=== PATIENT | female | born 1990 | race Caucasian/White ===

== ENCOUNTER → 2018-05-25 | Outpatient (CLI) | payer BC, OTHER ==
[~2018-05-25] MED LIST: ACHD5005 PO; BIRTH CONTROL PO; DCS100C PO; FERR-57 PO; IBP600T1 PO; Nifedipine PO; PREN-115 PO; SULF1TAB38 PO
--- NOTE | 2018-05-25 16:09 | Diagnostic Imaging Report ---
INDICATION: Anatomy scan. TECHNIQUE: Multiple real-time grayscale images were obtained over the gravid uterus. COMPARISON: None. FINDINGS: There is a single live fetus in a cephalic presentation. heart rate was recorded at 149 beats per minute. Cervical length is 4.4 cm. Placenta is posterior. Amniotic fluid volume is normal. survey shows kidneys, bladder and stomach to be unremarkable. The brain is unremarkable. There is a four-chamber heart. There is a three-vessel cord with normal insertion. Spine is unremarkable. Biometrical measurements are as follows: Biparietal 5.22 cm, age 21 weeks 6 days. Head circumference 19.28 cm, age 21 weeks 4 days. Abdominal circumference 14.33 cm, age 19 weeks 5 days. Femur length 3.53 cm, age 21 weeks 2 days. Sonographic estimate age: 21 weeks 1 days. Sonographic estimated date of delivery: 10/04/2018. Estimated Weight: 359 gm (+/- 52 gm). LMP percentile: 59%. heart rate: 149 beats per minute. number: 1 of 1. IMPRESSION: Single live IUP approximately 21 weeks 1 day gestational age. The estimated date of confinement sonographically is 10/04/2018. Dictated by: Dictated on workstation # [id number]
== END ==
LOC: RAD 14:35
PROVIDERS: ATTEND Obstetrics & Gynecology
DX: Z36.89 Encounter for other specified antenatal screening (principal); Z3A.21 21 weeks gestation of pregnancy
CPT/HCPCS: 76805

== ENCOUNTER → 2018-09-20 | Outpatient (CLI) | payer OTHER ==
[2018-09-20 15:53] LABS: MEAN PLATELET VOLUME 9.9 FL (7.4-10.4); RED CELL DISTRIBUTION WIDTH 11.9 % (10.0-14.5); WHITE BLOOD COUNT 10.9 10^3/uL (4.3-11.0)
[2018-09-20 16:21] LABS: ALANINE AMINOTRANSFERASE 8 U/L (0-55); ALBUMIN 3.5 GM/DL (3.2-4.5); ALKALINE PHOSPHATASE 150 U/L (40-136); BILIRUBIN,TOTAL 0.3 MG/DL (0.1-1.0); BUN/CREATININE RATIO 10; CALCIUM 8.9 MG/DL (8.5-10.1); CARBON DIOXIDE 16 MMOL/L (21-32); CHLORIDE 102 MMOL/L (98-107); CREATININE SERUM 0.69 MG/DL (0.60-1.30); GFR ESTIMATED > 60; GLUCOSE 117 MG/DL (70-105); POTASSIUM 3.6 MMOL/L (3.6-5.0); SODIUM 138 MMOL/L (135-145); TOTAL PROTEIN 6.4 GM/DL (6.4-8.2)
[2018-09-20 20:29] LABS: URIC ACID 6.1 MG/DL (2.6-7.2)
== END ==
LOC: LAB FS 15:05
PROVIDERS: ATTEND Obstetrics & Gynecology
DX: O13.3 Gestational [pregnancy-induced] hypertension without significant proteinuria, third trimester (principal); Z3A.37 37 weeks gestation of pregnancy
CPT/HCPCS: 36415; 80053; 82570; 84156; 84550; 85027

== ENCOUNTER → 2018-09-23 | Outpatient (CLI) | payer OTHER ==
[~2018-09-23] MED LIST changes: +DOCU100C37 PO; +IBUP-844 PO
== END ==
LOC: LABNPT 16:02
PROVIDERS: ATTEND Obstetrics & Gynecology
DX: O13.9 Gestational [pregnancy-induced] hypertension without significant proteinuria, unspecified trimester (principal)
CPT/HCPCS: 82570; 84156

== ENCOUNTER 2018-09-27 12:05 | Inpatient (IN) | payer BC, OTHER ==
[2018-09-27] VITALS (8 sets, daily range): BP systolic 124–138; BP diastolic 86–97
[~2018-09-27] VITALS: Ht 165.1 cm; Wt 70.3 kg
--- NOTE | 2018-09-27 11:55 | NUR ---
LUCERO MARAVILLA presented to unit via AMB from DR. PORTER'S OFFICE , accompanied by DR. PORTER AND PT'S MOM, with c/o UNCONTROLLED GESTATIONAL HYPERTENSION AND PREVIOUS SECTION. LUCERO MARAVILLA weighed, gowned, voided, and to bed. EFHM and TOCO applied, VS taken. LUCERO MARAVILLA oriented to bed controls, call light, TV, heat, and A/C controls.
[~2018-09-27 12:05] MED LIST changes: -DOCU100C37 PO; -IBUP-844 PO
[2018-09-27] MEDS ORDERED: LACTATED RINGERS 1,000 ML IV ONE (12:22)
[2018-09-27] MEDS ORDERED: LACTATED RINGERS 1,000 ML IV SCH (12:30)
[2018-09-27 13:10] LABS: BASOPHILS % (AUTO) 0 % (0-10); EOSINOPHILS # (AUTO) 0.1 10^3/uL (0.0-0.3); EOSINOPHILS % (AUTO) 1 % (0-10); HEMATOCRIT 37 % (35-52); HEMOGLOBIN 12.9 G/DL (11.5-16.0); LYMPHOCYTES # (AUTO) 2.7 X 10^3 (1.0-4.0); LYMPHOCYTES % (AUTO) 25 % (12-44); MEAN CORPUSCULAR HEMOGLOBIN 32 PG (25-34); MEAN CORPUSCULAR HGB CONC 35 G/DL (32-36); MEAN CORPUSCULAR VOLUME 91 FL (80-99); MEAN PLATELET VOLUME 10.7 FL (7.4-10.4); MONOCYTES # (AUTO) 0.9 X 10^3 (0.0-1.0); MONOCYTES % (AUTO) 8 % (0-12); NEUTROPHILS % (AUTO) 66 % (42-75); PLATELET COUNT 210 10^3/uL (130-400); WHITE BLOOD COUNT 10.6 10^3/uL (4.3-11.0)
--- NOTE | 2018-09-27 13:20 | History & Physical-OB ---
OB - Chief Complaint & HPI Date/Time Date of Admission: Date of Admission: Sep 27, 2018 at 12:05 Date seen by a Provider: Sep 27, 2018 Time Seen by a Provider: 11:55 Chief Complaint/History OB-Reason for Admission/Chief: Section Hx : 3 Expected Date of Delivery: October 10, 2018 Gestational Age in Weeks: 38 Gestational Age in Days: 1 Indication for : desires repeat Other reason for admission: Patient seen in office today due to elevation in BP, as well as other symptoms including numbness in hands and headache. Reports it has continued through the weekend. BP today in office 140s/90s-100s. Also BPP 8/, but SGA fetus 20th % tile. Admission Nurse Assessment Rev: Yes Allergies and Home Medications Allergies Coded Allergies: prochlorperazine (Unverified Allergy, Severe, ANAPHYLAXIS, 11/28/14) Home Medications Docusate Sodium 100 Mg Cap, 100 MG PO BID PRN for CONSTIPATION Prescribed by: PANCHITO PORTER on 11/29/14 0807 Ferrous Sulfate 325 Mg Tablet, 325 MG PO DAILY Prescribed by: PANCHITO PORTER on 11/29/14 0807 Hydrocodone Bit/Acetaminophen 1 Tab Tab, 1-2 TAB PO Q6H PRN for PAIN Prescribed by: PANCHITO PORTER on 11/29/14 0807 Ibuprofen 600 Mg Tab, 600 MG PO Q6H PRN for PAIN Prescribed by: PANCHITO PORTER on 11/29/14 0807 Vit #108/Iron/Fa 1 Each Tablet, 1 EACH PO DAILY, (Reported) Patient Home Medication List Home Medication List Reviewed: Yes OB - History Hx of Present Care: Yes Ultrasounds: Abnormal US findings (SGA) Obstetrical Complications: Gestational Hypertension Medical Complications: None Obstetrical History Hx Termination: No Hx Multiple Gestation: No Hx Stillbirth: No Hx Complication: No Hx Induced Hypertens: No Hx Maternal Gestational Diabet: No Delivery History Hx Dystocia: No Hx Large For Gestational Age I: No Hx Small for Gestational Age I: No Hx Section: Yes (amnionitis ) Hx Vaginal Delivery Post C-Sec: No Hx Blood Disorders: No Adverse Rxn to Tranfusion: No Patient Past Medical History History of rupture of membranes Previous section Social History/Family History HIV/AIDS: No Sexually Transmitted Disease: No Immunizations Hepatitis A: Yes Hepatitis B: Yes Tetanus Booster (TDap): Less than 5yrs Date of Influenza Vaccine: Apr 06, 2014 OB - Admission Exam Physical Exam HEENT: NCAT Heart: Rhythm Normal Lungs: Clear Abdomen: Gravid Extremities: Normal Reflexes: Normal Heart Rate: 130's Accelerations: Accelerations Present Decelerations: No Decelerations Short Term Variability: Present Wire Bender Hand Variability: Average (6-25) Contractions on Admission: >10 Minutes Apart Labs Laboratory Tests Test 09/27/18 12:30 Range/Units White Blood Count 10.6 4.3-11.0 10^3/uL Red Blood Count 4.06 L 4.35-5.85 10^6/uL Hemoglobin 12.9 11.5-16.0 G/DL Hematocrit 37 35-52 % Mean Corpuscular Volume 91 80-99 FL Mean Corpuscular Hemoglobin 32 25-34 PG Mean Corpuscular Hemoglobin Concent 35 32-36 G/DL Red Cell Distribution Width 12.0 10.0-14.5 % Platelet Count 210 130-400 10^3/uL Mean Platelet Volume 10.7 H 7.4-10.4 FL Neutrophils (%) (Auto) 66 42-75 % Lymphocytes (%) (Auto) 25 12-44 % Monocytes (%) (Auto) 8 0-12 % Eosinophils (%) (Auto) 1 0-10 % Basophils (%) (Auto) 0 0-10 % Neutrophils # (Auto) 7.0 1.8-7.8 X 10^3 Lymphocytes # (Auto) 2.7 1.0-4.0 X 10^3 Monocytes # (Auto) 0.9 0.0-1.0 X 10^3 Eosinophils # (Auto) 0.1 0.0-0.3 10^3/uL Basophils # (Auto) 0.0 0.0-0.1 10^3/uL OB - Assessment/Plan/Diagnosis Assessment Assessment: section Admission Dx 28 yo @ 38.1 weeks Uncontrolled worsening GHTN SGA Previous x 2 GBS neg Admission Status: Inpatient Order (span 2 midnights) Reason for Inpatient Admission: Repeat at term Plan Plan: Section PANCHITO PORTER DO Sep 27, 2018 13:20
[2018-09-27 13:35] LABS: ALANINE AMINOTRANSFERASE 10 U/L (0-55); ALBUMIN 3.5 GM/DL (3.2-4.5); ALKALINE PHOSPHATASE 182 U/L (40-136); BILIRUBIN,TOTAL 0.3 MG/DL (0.1-1.0); BUN/CREATININE RATIO 17; CALCIUM 9.2 MG/DL (8.5-10.1); CARBON DIOXIDE 20 MMOL/L (21-32); CHLORIDE 107 MMOL/L (98-107); CREATININE SERUM 0.66 MG/DL (0.60-1.30); GFR ESTIMATED > 60; GLUCOSE 87 MG/DL (70-105); POTASSIUM 3.8 MMOL/L (3.6-5.0); SODIUM 136 MMOL/L (135-145); TOTAL PROTEIN 6.5 GM/DL (6.4-8.2); URIC ACID 6.3 MG/DL (2.6-7.2)
[2018-09-27] MEDS ORDERED: CATHETER FLUSH 10 ML SYR IV SCH ×2 (14:00→22:00)
[2018-09-27] MEDS ORDERED: D5 LR IV SOLUTION 1,000 ML IV ONE (14:23)
[2018-09-27] MEDS ORDERED: D5 LR IV SOLUTION 1,000 ML IV SCH (14:30)
[2018-09-27] MEDS ORDERED: LACTATED RINGERS 1,000 ML IV PRN ×2 (16:10)
[2018-09-27] MEDS ORDERED: FAMOTIDINE 20MG/2ML IV (PEPCID) IV ONE (16:15)
[2018-09-27] MEDS ORDERED: METOCLOPRAMIDE INJ 10 MG/2 ML (REGLAN) IV ONE (16:15)
[2018-09-27] MEDS ORDERED: CITRIC ACID/SOB CIT (BICITRA) 30 ML UDC PO ONE (16:15)
[2018-09-27] MEDS ORDERED: CATHETER FLUSH 10 ML SYR IV PRN (16:15)
[2018-09-27] MEDS ORDERED: ceFAZolin INJECTION 1,000 MG in WATER (STERILE) FOR INJECTION 10 ML IV ONE (16:30)
[2018-09-27] MEDS ORDERED: OXYTOCIN/NORMAL SALINE 500 ML IV ONE ×2 (16:49→17:36)
[2018-09-27] MEDS ORDERED: fentaNYL INJECTION 100 MCG/2 ML AMP ONE (16:49)
--- NOTE | 2018-09-27 17:00 | NUR ---
MARION BRAGG ADJUNCT INSTRUCTOR CHEMISTRY IN TO TALK WITH PT.
[2018-09-27] MEDS ORDERED: OXYTOCIN/NORMAL SALINE 500 ML IV SCH (17:04)
--- NOTE | 2018-09-27 17:08 | Discharge Inst-Women's Service ---
Discharge Inst-Women's Serv Depart Medication/Instructions New, Converted or Re-Newed RX: RX on Chart Final Diagnosis POD 2 RLTCS Consults/Follow Up Additional Follow Up: Yes Orders/Referrals Dr Burns in 7-10 days and in 6 weeks. Activity Activity: Activity as Tolerated Driving Instructions: No Driving for 1 Week NO SMOKING: NO SMOKING Nothing Inside Vagina: No Douching, No [employer], No Tampons Diet Discharge Diet: No Restrictions Symptoms to Report to : Bleeding Excessive, Pain Increased, Fever Over 101 Degrees F, Vaginal Bleeding Increase, Questions/Concerns For Any Problems or Questions: Contact Your Physician Skin/Wound Care Infection Signs and Symptoms: Increased Redness, Foul Odor of Wound, Increased Drainage, Skin Itchy or Has a Rash, Increased Swelling, Temperature Above 101 F Operative Area Clean and Dry: Keep Incision Clean/Dry Stitches/Grahn/Dermabond: Dermabond, Care of Stitches Bathing Instructions: PANCHITO Valle DO Sep 27, 2018 17:08
[2018-09-27] MEDS ORDERED: DOCU100C37 PO (17:10)
[2018-09-27] MEDS ORDERED: IBUP-844 PO (17:10)
[2018-09-27] MEDS ORDERED: ACHD5005 PO (17:10)
[2018-09-27] MEDS ORDERED: MEASLES,MUMPS,RUBELLA 1 EA INJ SC SCH (17:15)
[2018-09-27] MEDS ORDERED: TETANUS,DIPTH,PERTUSS P/F (BOOSTRIX) 0.5 ML VIAL IM SCH (17:15)
[2018-09-27] MEDS ORDERED: ONDANSETRON 4 MG/2 ML (SDV) Z0FRAN IVP PRN ×2 (17:15→18:45)
[2018-09-27] MEDS ORDERED: HYDROcodone/APAP 5 MG/325 MG (LORTAB) TAB PO PRN (17:15)
--- NOTE | 2018-09-27 17:16 | NUR ---
EFM OFF. TO OBOR AMB FOR A REPEAT SECTION BY DR. PORTER IN STABLE CONDITION ACC BY CERTIFIED MEETING PROFESSIONAL.
[2018-09-27] MEDS ORDERED: ONDANSETRON 4 MG/2 ML (SDV) Z0FRAN ONE (17:30)
[2018-09-27] MEDS ORDERED: PHENYLEPHRINE 100 MCG/ML 10 ML (ANESTHESIA) SYR ONE (17:32)
[2018-09-27] MEDS ORDERED: ROPIVACAINE 5MG/ML 30ML VIAL ONE (17:57)
[2018-09-27] MEDS ORDERED: KETOROLAC 30 MG/ML VIAL ONE (18:18)
[2018-09-27] MEDS: KETOROLAC 30 MG/ML VIAL IV SCH (18:28)
[2018-09-27] MEDS ORDERED: HYDROmorphone 2 MG/ML VIAL (DILAUDID) IV ONE (18:45)
--- NOTE | 2018-09-27 19:15 | NUR ---
REPORT RECEIVED AND CARES RESUMED BY THIS NURSE. PT FINISHING UP RECOVERY AT THIS TIME AND WILL BE MOVED TO ROOM. PERICARE COMPLETED.
--- NOTE | 2018-09-27 19:30 | NUR ---
PT IN ROOM IN STABLE CONDITION.
--- NOTE | 2018-09-27 20:15 | NUR ---
COMPLETE SHIFT ASSESSMENT DONE. VSS. PT DENIES ANY NEEDS OR C/O'S.
--- NOTE | 2018-09-27 21:10 | NUR ---
COLACE ADMINISTERED. PT DENIES ANY PAIN, BUT IS NOW ABLE TO MOVE LEGS SLIGHTLY.
[2018-09-27] MEDS: DOCUSATE SODIUM 100 MG (COLACE) CAP PO SCH (21:14)
--- NOTE | 2018-09-27 22:15 | NUR ---
PT SITTING UP EATING MEAL BROUGHT IN BY S/O. DENIES ANY FURTHER NEEDS.
[2018-09-28] MEDS: KETOROLAC 30 MG/ML VIAL IV SCH ×3 (00:15→12:10)
--- NOTE | 2018-09-28 00:15 | NUR ---
PT RESTING SOUNDLY. IN OPEN CRIB RESTING AT BEDSIDE. TORADOL GIVEN. PT DENIES ANY FURTHER NEEDS.
--- NOTE | 2018-09-28 01:25 | NUR ---
PT ATTEMPTING TO BREASTFEED WITH SLEEPY BABY. TO Y FOR BATH. WILL ALLOW MOM TO REST AND WILL ATTEMPT BREASTFEED AFTER BATH.
[2018-09-28 01:30] VITALS: BP 122/84
--- NOTE | 2018-09-28 02:04 | OPERATIVE REPORT ---
DATE OF SERVICE: 09/27/2018 PREOPERATIVE DIAGNOSES: 1. A 28-year-old G3, P2 at 38 weeks and 1 day gestation. 2. Worsening gestational hypertension. 3. Small for gestational age. POSTOPERATIVE DIAGNOSES: 1. A 28-year-old G3, P2 at 38 weeks and 1 day gestation. 2. Worsening gestational hypertension. 3. Small for gestational age. PROCEDURE: Repeat low transverse section. SURGEON: Monty Porter DO. ANESTHESIA: Spinal. ESTIMATED BLOOD LOSS: 600 mL. URINE OUTPUT: 175 mL clear at the end of the procedure. FLUIDS: 1000 mL of lactated Ringer solution. FINDINGS: Live female weighing 6 pounds even with Apgars of 8 and 9. Grossly normal appearing uterus, bilateral fallopian tubes and ovaries. INDICATIONS FOR PROCEDURE: This 28-year-old female was a patient who had sought care in my office. She had planned for repeat . We had it scheduled for 39 weeks; however, due to worsening blood pressures in the third trimester in the last couple of weeks, we had decided to deliver at 38 weeks today because of clinical sequelae including headache and numbness and tingling down the left arm. She also had blood pressures of the 140s-150s/100 and this was at rest. Risk of delivery at 38 weeks was discussed with the patient in detail as well as risk for repeat , which had already been reviewed previously in her care. After all of her questions were answered in the preoperative period. Consent was obtained and the patient was taken to the operating room. OPERATIVE REPORT IN DETAIL: Once in the operating room, spinal analgesia was found to be adequate. She was placed in the supine position with leftward tilt, prepped and draped in the normal sterile fashion. A timeout was performed and anesthesia was tested. I then proceeded with making a Pfannenstiel skin incision through the previously existing scar using a knife and carried down to the layer of fascia using Bovie cautery. The fascial incision extended laterally using Bovie cautery. The superior edge of the fascial incision was then grasped with Lewis clamps, tented up and dissected off the underlying rectus muscles. The inferior aspect of the fascial incision was then grasped with Lewis clamps, tented upward and dissected off the underlying rectus muscles. The rectus muscle was then dissected down the midline using Escoto scissors, which I then identified the peritoneum and entered in bluntly using blunt dissection. Once peritoneal access was obtained I placed an Tigre ring retractor into the peritoneal incision, which offers excellent lateral sidewall retraction. I identified the lower uterine segment, which was found to be thinned out. I made a low transverse incision through the vesicouterine peritoneum and bluntly dissected off the lower uterine segment. I then proceed with myotomy until membranes were visualized, at which point I extended the uterine incision laterally and superiorly using bandage scissors. Amniotomy was performed in the process of doing this and clear fluid was noted. The was found in the vertex presentation. With gentle fundal pressure, the infant's head elevated up to the incision; however, there was a stricture from previous scar tissue from previous cesareans that it is noted that makes it difficult to deliver the head. The Kiwi vacuum extractor was placed in the mid sagittal line and of the scalp the pressure was applied to 400 mmHg, at which point I am able to gently extend the 's head through the incision. The nares and oropharynx were then bulb suctioned. Anterior and posterior shoulders were delivered. The was then brought into the operative field where the cord was doubly clamped and cut and infant was handed off to nurses in attendance. Cord blood was collected. Three-vessel cord with intact placenta was delivered spontaneously thereafter. IV Pitocin was initiated to facilitate uterine contraction. The uterine fundus became firm by bimanual massage. The uterus was exteriorized and cleared of endometrial clots and debris. I then proceeded to close the uterine incision using 0 Vicryl suture in a running locked fashion. Second layer of imbricating 0 Monocryl was placed. Excellent hemostasis was noted after doing this. I then placed the uterus back in the pelvis and copiously irrigated the pelvis using normal saline. Once again, there was no active bleeding noted from any of my dissection planes. I placed Interceed antiadhesive over my low transverse incision. I proceeded with closing the peritoneum using 3-0 Vicryl suture in running fashion. The rectus muscle reapproximated using 3-0 Vicryl suture in an interrupted fashion. The fascia reapproximated with 0 Vicryl suture in running fashion. The subcutaneous tissue is not very thin and therefore I just reapproximated the skin using 4-0 Monocryl in a running subcuticular. Skin Affix was applied to the incision after this was done and a sterile dressing was adhesed with white tape. The patient tolerated the procedure well and was taken to recovery area in stable condition. Lap and sponge counts were correct at the end of the procedure. Instrument count was correct as well. One gram of Ancef given preoperatively for infection prophylaxis. Job ID: [id number] DocumentID: [id number] Dictated Date: 09/27/2018 18:15:45 Hydraulic Miner Date: 09/28/2018 02:03:34 Dictated By: MONTY PORTER DO
--- NOTE | 2018-09-28 04:30 | NUR ---
PT UP TO BATHROOM TO VOID. JONATHAN VERY WELL. DESPITE NO FEELING OF NEEDING TO VOID PT ABLE TO VOID 400CC. LOCHIA LIGHT. PERICARE COMPLETED. PT BACK TO BED TO REST. DENIES ANY NEEDS AT THIS TIME.
--- NOTE | 2018-09-28 06:10 | NUR ---
LAB HERE FOR AM LABS.
[2018-09-28 06:12] LABS: BASOPHILS % (AUTO) 0 % (0-10); EOSINOPHILS # (AUTO) 0.1 10^3/uL (0.0-0.3); EOSINOPHILS % (AUTO) 1 % (0-10); HEMATOCRIT 32 % (35-52); HEMOGLOBIN 10.9 G/DL (11.5-16.0); LYMPHOCYTES # (AUTO) 2.2 X 10^3 (1.0-4.0); LYMPHOCYTES % (AUTO) 21 % (12-44); MEAN CORPUSCULAR HEMOGLOBIN 32 PG (25-34); MEAN CORPUSCULAR HGB CONC 34 G/DL (32-36); MEAN CORPUSCULAR VOLUME 93 FL (80-99); MEAN PLATELET VOLUME 10.4 FL (7.4-10.4); MONOCYTES # (AUTO) 0.8 X 10^3 (0.0-1.0); MONOCYTES % (AUTO) 7 % (0-12); NEUTROPHILS # (AUTO) 7.8 X 10^3 (1.8-7.8); NEUTROPHILS % (AUTO) 72 % (42-75); PLATELET COUNT 152 10^3/uL (130-400); RED CELL DISTRIBUTION WIDTH 11.9 % (10.0-14.5); WHITE BLOOD COUNT 10.9 10^3/uL (4.3-11.0)
--- NOTE | 2018-09-28 07:59 | Postpartum Progress Note ---
Note Note Day # 1 Subjective: Patient is without complaints. Ambulating, voiding. Tolerating a regular diet without nausea or vomiting. Normal lochia. Pain is well controlled with oral pain medications. Objective: Physical Exam: General - Alert and oriented, no apparent distress Abdomen - Soft, appropriately tender to palpation, non-distended, fundus firm at umbilicus Extremities - no edema, negative Deandre's bilaterally Incision- c/d/i Assessment: POD 1 RLTCS GHTN- improved Plan: Routine care. Encourage breast feeding. Encourage ambulation. Ferrous sulfate supplementation. Plan for discharge tomorrow Vitals - Labs Vital Signs - I&O Vital Signs Date Time Temp Pulse Resp B/P (MAP) Pulse Ox O2 Delivery O2 Flow Rate FiO2 09/28/18 04:30 Room Air 09/28/18 01:30 98.6 97 18 122/84 (97) 97 Room Air 09/27/18 20:15 98.1 82 18 128/89 (102) 97 Room Air 09/27/18 19:39 Room Air 09/27/18 19:10 97.8 18 100 Room Air 09/27/18 18:55 97.8 16 99 Room Air 09/27/18 18:40 97.8 16 100 Room Air 09/27/18 18:25 97.6 16 100 Room Air 09/27/18 18:10 97.6 16 100 Room Air 09/27/18 16:25 98.9 89 20 138/92 (107) 98 Room Air 09/27/18 15:55 79 18 130/92 (105) Room Air 09/27/18 14:55 88 18 126/86 (99) Room Air 09/27/18 14:32 88 18 134/94 (107) Room Air 09/27/18 13:57 80 20 124/90 (101) Room Air 09/27/18 13:25 99.1 80 20 131/89 (103) Room Air 09/27/18 12:15 99.2 94 20 132/97 (109) 97 Room Air I & O 09/28/18 07:00 Intake Total 2812 ml Output Total 1740 ml Balance 1072 ml Labs Laboratory Tests 09/27/18 12:15: Urine Protein 17H, Urine Creatinine 138H, Urine Protein/Creatinine Ratio 0.12 09/27/18 12:30: White Blood Count 10.6, Red Blood Count 4.06L, Hemoglobin 12.9, Hematocrit 37, Mean Corpuscular Volume 91, Mean Corpuscular Hemoglobin 32, Mean Corpuscular Hemoglobin Concent 35, Red Cell Distribution Width 12.0, Platelet Count 210, Mean Platelet Volume 10.7H, Neutrophils (%) (Auto) 66, Lymphocytes (%) (Auto) 25 , Monocytes (%) (Auto) 8, Eosinophils (%) (Auto) 1, Basophils (%) (Auto) 0, Neutrophils # (Auto) 7.0, Lymphocytes # (Auto) 2.7, Monocytes # (Auto) 0.9, Eosinophils # (Auto) 0.1, Basophils # (Auto) 0.0, Sodium Level 136, Potassium Level 3.8, Chloride Level 107, Carbon Dioxide Level 20L, Anion Gap 9, Blood Urea Nitrogen 11, Creatinine 0.66, Estimat Glomerular Filtration Rate > 60, BUN/ Creatinine Ratio 17, Glucose Level 87, Uric Acid 6.3, Calcium Level 9.2, Corrected Calcium 9.6, Total Bilirubin 0.3, Aspartate Amino Transf (AST/SGOT) 14 , Alanine Aminotransferase (ALT/SGPT) 10, Alkaline Phosphatase 182H, Total Protein 6.5, Albumin 3.5 09/28/18 05:55: White Blood Count 10.9, Red Blood Count 3.41L, Hemoglobin 10.9L, Hematocrit 32L , Mean Corpuscular Volume 93, Mean Corpuscular Hemoglobin 32, Mean Corpuscular Hemoglobin Concent 34, Red Cell Distribution Width 11.9, Platelet Count 152, Mean Platelet Volume 10.4, Neutrophils (%) (Auto) 72, Lymphocytes (%) (Auto) 21 , Monocytes (%) (Auto) 7, Eosinophils (%) (Auto) 1, Basophils (%) (Auto) 0, Neutrophils # (Auto) 7.8, Lymphocytes # (Auto) 2.2, Monocytes # (Auto) 0.8, Eosinophils # (Auto) 0.1, Basophils # (Auto) 0.0 PANCHITO PORTER DO Sep 28, 2018 07:59
[2018-09-28 08:30] VITALS: BP 126/80
--- NOTE | 2018-09-28 08:30 | NUR ---
A.M. ASSESSMENT COMPLETED. VSS. READY TO TAKE A SHOWER. DOING WELL.
[2018-09-28] MEDS: DOCUSATE SODIUM 100 MG (COLACE) CAP PO SCH ×2 (09:00→21:15)
--- NOTE | 2018-09-28 10:00 | NUR ---
CARING FOR INFANT IN ROOM. GOOD INTERACTION NOTED.
[2018-09-28 12:00] VITALS: BP 119/79
--- NOTE | 2018-09-28 12:00 | NUR ---
VSS. [T HAS BEEN AMBULATING IN THE CANCINO. MOVES WELL WITHOUT COMPLAINT.
--- NOTE | 2018-09-28 12:36 | NUR ---
PT HAS HAD TDAP VACCINE.
[2018-09-28] MEDS ORDERED: SIMETHICONE 80 MG (MYLICON) CHEW PO PRN (14:30)
--- NOTE | 2018-09-28 14:40 | Anesthesia-Regional Post-Op ---
Regional Patient Condition Mental Status: Alert, Oriented x3 Circulation: Same as Pre-Op Headache: Absent Sensation: Full Recovery Motor Block: Absent Post Op Complications Complications None Follow Up Care/Instructions Patient Instructions None needed. Anesthesia/Patient Condition Patient was seen this morning in post-op rounds and she was doing well, no complaints, stable vital signs, no apparent adverse anesthesia problems. APOORVA SAXENA DO Sep 28, 2018 14:40
[2018-09-28 16:30] VITALS: BP 131/84
--- NOTE | 2018-09-28 16:30 | NUR ---
PT HAD STORK MEAL. VSS.
--- NOTE | 2018-09-28 18:00 | NUR ---
LOTS OF VISITORS AT BEDSIDE. CARING FOR IN ROOM. OFFERS NO COMPLAINTS.
[2018-09-28] MEDS: IBUPROFEN 600 MG (MOTRIN) TAB PO SCH (18:10)
[2018-09-28 19:27] VITALS: BP 132/88
[2018-09-29 01:05] VITALS: BP 122/82
[2018-09-29] MEDS: IBUPROFEN 600 MG (MOTRIN) TAB PO SCH ×2 (01:05→07:52)
[2018-09-29] MEDS: DOCUSATE SODIUM 100 MG (COLACE) CAP PO SCH (07:53)
[2018-09-29 07:55] VITALS: BP 128/84
--- NOTE | 2018-09-29 08:00 | NUR ---
INFANT. PLANS TO GO HOME TODAY.
--- NOTE | 2018-09-29 08:30 | NUR ---
DR. PORTER IN TO SEE PT. PLAN FOR DISCHARGE.
--- NOTE | 2018-09-29 08:30 | Postpartum Progress Note ---
Note Note Day # 2 Subjective: Patient is without complaints. Ambulating, voiding. Tolerating a regular diet without nausea or vomiting. Normal lochia. Pain is well controlled with oral pain medications. Objective: Physical Exam: General - Alert and oriented, no apparent distress Abdomen - Soft, appropriately tender to palpation, non-distended, fundus firm at umbilicus Extremities - no edema, negative Deandre's bilaterally Incision- c/d/i Assessment: POD 2 RLTCS Plan: Routine care. Encourage breast feeding. Encourage ambulation. Ferrous sulfate supplementation. Plan for discharge today Vitals - Labs Vital Signs - I&O Vital Signs Date Time Temp Pulse Resp B/P (MAP) Pulse Ox O2 Delivery O2 Flow Rate FiO2 09/29/18 07:55 98.2 80 18 128/84 (99) 98 Room Air 09/29/18 01:05 99.0 87 18 122/82 (95) 98 Room Air 09/28/18 19:27 98.8 94 18 132/88 (103) 98 Room Air 09/28/18 16:30 98.2 95 18 131/84 (100) 97 Room Air 09/28/18 12:00 98.5 79 18 119/79 (92) 98 Room Air 09/28/18 08:30 97.7 97 18 126/80 (95) 96 Room Air I & O 09/29/18 07:00 Intake Total 2350 ml Output Total 1700 ml Balance 650 ml Labs Microbiology 09/27/18 MRSA Screen - Final, Complete MRSA not isolated PANCHITO PORTER DO Sep 29, 2018 08:30
--- NOTE | 2018-09-29 11:00 | NUR ---
DOZING WITH LIGHTS OFF. INFANT ASLEEP IN OPEN CRIB.
--- NOTE | 2018-09-29 12:45 | NUR ---
DISCHARGE INSTRUCTIONS REVIEWED WITH COPY TO PT. STATES UNDERSTANDING OF ALL INSTRUCTIONS AND NEED TO F/U SCHEDULED AND NEEDED.
[2018-09-29 13:00] VITALS: BP 128/84
--- NOTE | 2018-09-29 13:00 | NUR ---
DISMISSED AMB FROM [facility] WITH TO FAMILY CAR IN STABLE CONDITION ACC BY UMESH BRAND RN.
== END 2018-09-29 13:00 | disposition home or self-care (01) | DRG 788 ==
LOC: LDRP 12:05
PROVIDERS: ADMIT Obstetrics & Gynecology; ATTEND Obstetrics & Gynecology
PROC: 10D00Z1 Extraction of Products of Conception, Low, Open Approach (ICD-10-PCS; principal; 2018-09-27 17:17)
DX: O13.4 Gestational [pregnancy-induced] hypertension without significant proteinuria, complicating childbirth (principal); O36.5930 Maternal care for other known or suspected poor fetal growth, third trimester, not applicable or unspecified; O34.211 Maternal care for low transverse scar from previous cesarean delivery; Z3A.38 38 weeks gestation of pregnancy; Z37.0 Single live birth
CPT/HCPCS: 36415; 80053; 82570; 84156; 84550; 85025; 86850; 86900; 86901; 87081; 94664